=== PATIENT | female | born 1945 | race African-American/Black ===

== ENCOUNTER 2022-12-11 08:10 | Outpatient (REF) | payer OTHER, SELFPAY ==
[2022-12-11 14:33] LABS: MANUAL DIFF FLAG NO
[2022-12-11 14:40] LABS: Basophils Absolute Auto 0.1 X10*3/uL (0.0-0.2); Basophils Percent Auto 0.8 % (0-2); Eosinophils Absolute Auto 0.2 X10*3/uL (0.0-0.4); Eosinophils Percent Auto 2.7 % (0-4); Hematocrit 38.5 % (37.0-47.0); Hemoglobin 12.1 g/dl (12.0-16.0); Imm Gran Abs Auto 0.01 X10*3/uL (0.00-0.03); Imm Gran Pct Auto 0.2 % (0.0-0.4); Lymphocytes Absolute Auto 2.5 X10*3/uL (1.2-4.9); Mean Corpuscular HGB Conc 31.4 g/dl (31.0-35.0); Mean Corpuscular Hemoglobin 27.6 pg (27.0-33.0); Mean Corpuscular Volume 87.7 fL (80.0-98.0); Mean Platelet Volume 10.6 fL (9.4-12.3); Monocytes Absolute Auto 0.4 X10*3/uL (0.1-1.2); Monocytes Percent Auto 7.2 % (2-11); Neutrophils Absolute Auto 2.9 x10*3/uL (2.0-8.3); Neutrophils Percent Auto 48.1 % (45-73); Platelet Count 266 X10*3/uL (160-400); Red Blood Count 4.39 X10*6/uL (4.20-5.50); Red Cell Distribution Width 13.2 % (11.0-16.0)
[2022-12-11 15:19] LABS: Alanine Aminotransferase 22 U/L (0-31); Albumin Level 4.3 g/dL (3.5-5.0); Alkaline Phosphatase 74 U/L (39-117); Anion Gap 13 (12-20); Aspartate Amino Transferase 23 U/L (5-31); Bilirubin Direct 0.2 mg/dL (0.0-0.5); Bilirubin Total 0.4 mg/dL (0.0-1.0); Blood Urea Nitrogen 13 mg/dL (9-16); Calcium 10.2 mg/dL (8.4-10.2); Carbon Dioxide 26 mmol/L (22-29); Chloride 103 mmol/L (96-108); Cholesterol 199 mg/dL (<200); Estimated Glomerular Filt Rate 55; Glucose Fasting 72 mg/dL (60-99); HDL Cholesterol 48 mg/dL (>40); LDL Cholesterol Calculated 128 mg/dL (<100); Potassium 3.4 mmol/L (3.3-5.1); Sodium 139 mmol/L (135-145); Total Protein 8.6 g/dL (6.5-8.0); Triglycerides 117 mg/dL (<150)
== END 2022-12-11 08:11 | disposition home or self-care (01) ==
LOC: HO.CHCLDS 08:10
PROVIDERS: Visit Provider Student in an Organized Health Care Education/Training Program
DX: I10 Essential (primary) hypertension (principal)
CPT/HCPCS: 36415; 80048; 80061; 80076; 85025

== ENCOUNTER 2023-02-27 10:35 | Outpatient (REF) | payer OTHER, SELFPAY ==
[2023-02-27 14:19] LABS: MANUAL DIFF FLAG NO
[2023-02-27 14:30] LABS: Basophils Percent Auto 0.6 % (0-2); Eosinophils Absolute Auto 0.2 X10*3/uL (0.0-0.4); Eosinophils Percent Auto 2.5 % (0-4); Hematocrit 37.2 % (37.0-47.0); Hemoglobin 11.8 g/dl (12.0-16.0); Imm Gran Abs Auto 0.02 X10*3/uL (0.00-0.03); Imm Gran Pct Auto 0.3 % (0.0-0.4); Lymphocytes Absolute Auto 2.6 X10*3/uL (1.2-4.9); Lymphocytes Percent Auto 36.5 % (20-40); Mean Corpuscular HGB Conc 31.7 g/dl (31.0-35.0); Mean Corpuscular Hemoglobin 27.7 pg (27.0-33.0); Mean Corpuscular Volume 87.3 fL (80.0-98.0); Mean Platelet Volume 10.8 fL (9.4-12.3); Monocytes Absolute Auto 0.6 X10*3/uL (0.1-1.2); Monocytes Percent Auto 8.2 % (2-11); Neutrophils Absolute Auto 3.7 x10*3/uL (2.0-8.3); Neutrophils Percent Auto 51.9 % (45-73); Platelet Count 243 X10*3/uL (160-400); Red Blood Count 4.26 X10*6/uL (4.20-5.50); Red Cell Distribution Width 13.6 % (11.0-16.0); White Blood Count 7.1 X10*3/uL (4.8-10.8)
[2023-02-27 14:43] LABS: C Reactive Protein 2.93 mg/dL (< or = 0.50)
[2023-02-27 15:18] LABS: Erythrocyte Sedimentation Rate 45 MM/HR (0-20)
[2023-03-02 17:28] LABS: Lyme Abs Screen <0.90 index
[2023-03-02 21:59] LABS: A. Phagocytphilium DNA,RT-PCR NOT DETECTED (NOT DETECTED); Babesia Microti DNA, RT-PCR NOT DETECTED (NOT DETECTED); Borrelia Miyamotoi,DNA RT-PCR NOT DETECTED (NOT DETECTED); E.Chaffeensis DNA RT-PCR NOT DETECTED (NOT DETECTED); Lyme(Borrelia ssp)DNA RT-PCR NOT DETECTED (NOT DETECTED)
== END 2023-02-27 10:36 | disposition home or self-care (01) ==
LOC: HO.CHCLDS 10:35
PROVIDERS: Visit Provider Registered Nurse
DX: S80.862D Insect bite (nonvenomous), left lower leg, subsequent encounter (principal); L03.90 Cellulitis, unspecified; W57.XXXD Bitten or stung by nonvenomous insect and other nonvenomous arthropods, subsequent encounter
CPT/HCPCS: 36415; 85025; 85652; 86140; 86617; 86618; 87468; 87469; 87478; 87484; 87798

== ENCOUNTER 2024-01-04 08:42 | Outpatient (REF) | payer OTHER, SELFPAY ==
[2024-01-04 15:00] LABS: Alanine Aminotransferase 19 U/L (0-31); Albumin Level 4.5 g/dL (3.5-5.0); Alkaline Phosphatase 74 U/L (39-117); Anion Gap 16 (12-20); Aspartate Amino Transferase 19 U/L (5-31); Bilirubin Direct 0.1 mg/dL (0.0-0.5); Bilirubin Total 0.4 mg/dL (0.0-1.0); Blood Urea Nitrogen 19 mg/dL (9-16); Calcium 10.3 mg/dL (8.4-10.2); Carbon Dioxide 27 mmol/L (22-29); Chloride 100 mmol/L (96-108); Cholesterol 230 mg/dL (<200); Estimated Glomerular Filt Rate 58; Glucose Random 88 mg/dL (60-115); HDL Cholesterol 48 mg/dL (>40); LDL Cholesterol Calculated 152 mg/dL (<100); Potassium 3.5 mmol/L (3.3-5.1); Sodium 139 mmol/L (135-145); Total Protein 8.5 g/dL (6.5-8.0); Triglycerides 153 mg/dL (<150)
== END 2024-01-04 08:43 | disposition home or self-care (01) ==
LOC: HO.CHCLDS 08:42
PROVIDERS: Visit Provider Student in an Organized Health Care Education/Training Program
DX: I10 Essential (primary) hypertension (principal); E78.00 Pure hypercholesterolemia, unspecified
CPT/HCPCS: 36415; 80048; 80061; 80076

== ENCOUNTER 2024-11-04 08:02 | Outpatient (REF) | payer OTHER, SELFPAY ==
--- OUTSIDE RECORDS SUMMARY | 2024-11-04 08:05 | XMS_ITS | Clinical Summary ---
Author Organization [facility] Address [address] [place] [address] Care Team Providers Care Bingo Floater Name Role Phone Pcp, No Primary Care Provider Unavailabl e Allergies No known active allergies Social History Tobacco Use Types Packs/Day Years Used Date Smoking Tobacco: Never Assessed Comments Unknown Sex and Gender Information Value Date Recorded Sex Assigned at Not on file Legal Sex Female 4:22 PM EDT Gender Identity Not on file Sexual Orientation Not on file Last Filed Vital Signs Vital Sign Reading Time Taken Comments Blood Pressure 145/66 11/29/2020 7:14 PM EDT Pulse 64 11/29/2020 7:14 PM EDT Temperature 36.4 C (97.5 F) 11/29/2020 7:14 PM EDT Respiratory Rate 17 11/29/2020 7:14 PM EDT Oxygen Saturation 100% 11/29/2020 7:14 PM EDT Inhaled Oxygen Concentration - - Weight - - Height - - Body Mass Index - - Plan of Treatment Health Maintenance Due Date Last Done Comments Hepatitis C Virus Screening 1945 DTaP/Tdap/Td Vaccines (1 - Tdap) 1964 Pneumococcal Vaccines 50+ (1 of 1 - PCV) 1995 Zoster (Shingles) Vaccine (1 of 2) 1995 DXA Bone Density (Females,Ag es 65 and older) 2010 RSV Vaccine 60 years and old er and Patients (1 - 1-dose 75+ series) 2020 COVID-19 Vaccine ( - 2023-2 5 season) 2023 Influenza Vaccine 11/18/2024 Hepatitis B Vaccines Aged Out No long er eligible based on patient's age to complete this topic Insurance [facility] [place]ICARE OUT OF NETWORK Care Teams Bingo Floater Relationship Specialty Start Date End Date Pcp, No PCP - General General Medicine 11/29/20
--- OUTSIDE RECORDS SUMMARY | 2024-11-04 08:05 | XMS_ITS | Encounter Summary ---
Author Organization [employer] Address [address] [facility] [address] [place] [address] Care Team Providers Care County Sheriff Name Role Phone Eleni Abrams MD Primary Care Provider [phone] Reason for Visit * Reason Onset Date Comments Medication Question 08/27/2022 Encounter Details Date Type Department Care Team ([facility] st Contact Info) Description 08/27/2022 Telephone [facility] [address] [place], [place] [phone] Eleni Abrams MD [address] [place] [address] Medication Question Social History Tobacco Use Types Packs/Day Years Used Date Smoking Tobacco: Never Assessed Comments Unknown Sex and Gender Information Value Date Recorded Sex Assigned at Female 02/17/2022 10:14 AM EDT Legal Sex Female 10:14 AM EDT Gender Identity Female 02/17/2022 10:14 AM EDT Sexual Orientation Straight 02/17/2022 10 :14 AM EDT COVID-19 Exposure Response Date Recorded In the last 10 days, have yo u been in contact with someone who was confirmed or suspected to have Coronavirus/COVID-19? No / Unsure 08/22/2022 9:13 AM EDT documented as of this encounter Miscellaneous Notes * Telephone Encounter - Nancy Fatima RN - 08/27/2022 11:31 AM EDT Per office note from 08/22/22, pt started on Meloxicam as needed. Rx not sent. Will forward to PCP rachel. Please advise. Thank you. * Telephone Encounter - Ros Brock - 08/27/2022 11:22 AM EDT Tc from pt requesting status on a medication pcp was going to prescribe on last visit on 08/22/22. Pt also informs was going to get a call back regarding status on med line paper work . documented in this encounter Plan of Treatment Upcoming Encounters Date Type Department Care Team (Late st Contact Info) Description 11/11/2024 11:00 AM EDT Clinical Support [facility] [address] [place] [address] documented as of this encounter Visit Diagnoses Not on filedocumented in this encounter Care Teams County Sheriff Relationship Specialty Start Date End Date Eleni Abrams MD [address] [place] [id number] PCP - General Family Medicine 05/19/13 documented as of this encounter
--- OUTSIDE RECORDS SUMMARY | 2024-11-04 08:05 | XMS_ITS | Data Portability ---
Author Organization [employer] [facility], [facility] Address [address] [place] [address] Care Team Providers Care Intelligence Operations Name Role Phone [facility] OTHER [phone] [facility] OTHER Assessment Encounter Date Assessment Date Assessment LastModified by Organization Details LastModified Time 05/02/2024 05/02/2024 I provided real -time medical direction via phone for this encounter and was available for additional phone-based assistance as needed. I have reviewed and agree with the Assessment and Plan as documented by the Superintendent Electric [employer]. Patient given the opportunity to ask questions. Our service contacted for an assessment of: Viral URI symptoms As per above, patient with approximately several weeks of viral URI symptoms. Denies fever or chills. Denies chest pain, shortness of breath, dyspnea on exertion. Positive nasal congestion and dry cough. Positive sick contacts. Per osteologist on the scene, vital signs are stable and patient is afebrile. Minimal wheezing heard on exam. COVID and Flu are both negative. No increased work of breathing and no distress. Impression: Common cold and viral URI Plan: Continue with [id number] medications to control symptoms. Red flags discussed as to when to seek a higher level care. Allergies: Reviewed PCP f/u: We discussed the diagnostic uncertainty of home visits and the risk associated with this. In this case, the patient and I felt this to be an acceptable and reasonable amount of risk given the benefit of avoiding an ED visit. We discussed the need to seek care urgently/emergen tly in the setting of any new or worsening serious symptoms, particularly fever chills [email or web address] Not available 05/02/2024 16:49:03 Plan of Treatment Reminders Order Date Submit Date Provider Last Modified By Organization Details Last Modified Time Details Appointments None recorded. Lab rapid flu (A+B) [address], [address] [place] [address], [id number] 5 16:48:28 rapid SARS CoV 2 Ag, QL IA, respiratory specimen 2024 025 [email or web address], [address] [place] [address], [phone] 5 16:48:29 Referral None recorded. Procedures None recorded. Surgeries None recorded. Imaging None recorded. Medication Orders None recorded. Patient TargetsNo targets recorded. Patient InstructionsNo instructions recorded. Reason for Referral None Reported. Results Created Date Observation Date Name Description Value Unit Range Abnormal Flag Note LastModifiedBy Organization Detail LastModifiedTime 05/02/1905/02/2024 rapid SARS CoV 2 Ag, QL IA, respi rator y speci men rapid SARS CoV 2 Ag, QL IA, respiratory specimen negati ve Not Available [facility] ed [address] [place] [address], [phone] 05/02/2024 16:48:16 05/02/19 25 05/02/2024 rapid flu (A+B) Flu negati ve Not Available [address], [phone] 05/02/2024 16:48:15 Result Notes None recorded. Medical Equipment None Reported. Allergies No known drug allergies Medications Name Sig Start Date Stop Date Status Note LastModified by Organization Details LastModified Time nifedipine ER 30 mg tablet,extend ed release 24 hr TAKE 1 TABLET BY MOUTH EVERY DAY active Not Available Not Available No t Available betamethasone valerate 0.1 % topical ointment APPLY TOPICALLY IF NEEDED IN THE MORNING AND AT BEDTIME (DRYNESS). active Not Available Not Available N ot Available atorvastatin 80 mg tablet TAKE 1 TABLET BY MOUTH EVERY DAY active Not Available Not Available No t Available aspirin 81 mg tablet,delaye d release TAKE 1 TABLET BY MOUTH EVERY DAY active Not Available Not Available No t Available triamcinolone acetonide 0.1 % topical cream APPLY TOPICALLY IF NEEDED IN THE MORNING AND AT BEDTIME (PAIN AND SWELLING). active Not Available Not Available N ot Available ketorolac 0.5 % eye drops PLACE 1 DROP INTO THE OPERATIVE EYE TWICE A DAY START 2 DAYS PRIOR TO SURGERY. active Not Available Not Available No t Available hydrochloroth iazide 25 mg tablet TAKE 1 TABLET BY MOUTH EVERY DAY active Not Available Not Available No t Available lisinopril 40 mg tablet TAKE 1 TABLET BY MOUTH EVERY DAY IN THE MORNING active Not Available Not Available No t Available Vitamin D3 25 mcg (1,000 unit) tablet TAKE 1 TABLET BY MOUTH EVERY DAY active Not Available Not Available No t Available omega 8-svr-drx-fis h oil 1,000 mg (120 mg-180 mg) capsule TAKE 1 CAPSULE BY MOUTH EVERY DAY active Not Available Not Available No t Available Vitals Date Recorded Oxygen saturation Oxygen saturation in Arterial blood by Pulse oximetry Heart rate Respiratory rate Body temperature Systolic And Diastolic Provider Name and Address Organization Details Last Updated DateTime 5 99 % 99 % 71 /min 16 /min 98.2 [degF] 146/78 mm[Hg] Not Available [facility] - production 5 16:06:23 Social History None recorded. Functional Status None recorded. Mental Status None recorded. Family History Nothing Reported. Medical History No medical history recorded. Gynecological HistoryNo gynecological history recorded. Obstetrics History GPAL:G 0 P 0 0 0 0 Past Encounters Encounter ID Performer Location Encounter Start Date Encounter Closed Date Diagnosis/Indication Diagnosis SNOMED-CT Code Diagnosis ICD10 Code Diagnosis Note [id number] Simin Parrish MD Main - [facility] [address] [place] [phone] 05/02/2024 16:02:49 05/02/2024 17:11:44 Viral syndrome 708158755 B34.9 Health Concerns Section Related Observation LastModified by Organization Detai ls LastModified Time None Recorded Concern Status LastModified by Organization Details LastModified Time None Recorded Advance Directives Directive None Recorded Payers Insurance Date Sequence Insurance Name Policy Number Policy Hauser Covered Member ID Hauser Member ID Guarantor Name 05/14/2024 1 [facility] - DOS ON OR AFTER 2022 - DUAL ELIGIBLE - [employer] OPTIONS AND ONE CARE (MEDICARE REPLACEMENT/ADV ANTAGE - HMO) Angela Dallas [id number] Angela Dallas Notes Date Note Type Note Provider Name and Address Organization Details Recorded Time 05/02/2024 text/html HPI: Patient with illness since . Had N/V/D and now with cold suymptoms. Poor appetite an weakness. Fluid intake ok no urinary specific complaints per Daughter. .................. .................. .................. .................. .................. .................. .................. ............... [facility] Nurse Triage Notes (Mindi Cannon - RN): Chief Complaints: Weakness, Common cold symptoms PMH: Hypertension, Cancer PMH Reviewed at 05/02/2024 Allergies Reviewed at 05/02/2024 Comments: HPI reviewed- [place] Superintendent [employer] Organization Information for Sarthak Chance Dario F[employer] Legal Name: [employer] Address: [address] [place] [address], [place]: Po Benitez MD CLIA No.: [id number] [employer] POC Test Results from Sarthak Chance Rapid COVID antigen (16:06:37) COVID: - Rapid influenza antigen (16:06:40) Flu: - .................. .................. .................. .................. .................. .................. .................. ............... [employer] Note From Sarthak Chance: Dispatched to the call address for the female with cold like symptoms. Pt states that a little after Olivia she started with cold/flu like symptoms. She had cough, n/v/d, headaches and body aches but now she only has nasal congestion and fatigue. Pt advises she has been able to maintain PO hydration and nutrition. She has been taking OTC medications with good effect but has not spoken to her doctor. She denies chest pain, diff breathing/shortnes s of breath or any other symptoms at this time. Pt looking for reassurance. Pt was found opening the door, CAOx4, airway open and patent, breathing non labored, able to speak in full sentences, -JVD, -HEENT, skin PWD with good turgor, abd soft non tender/distended, mucous membranes pink and moist, Pupils PERRL, +CMSx4, lung sounds CTA, Rapid Covid/flu (-). [facility] [place]. Red flags discussed. ALL times are approx. .................. .................. .................. .................. .................. .................. .................. ............... [facility] Consulted: Simin Parrish .................. .................. .................. .................. .................. .................. .................. ............... Disposition: Fulfilled Simin Parrish MD [address] [facility], [place], [address], [facility] 05/02/2024 16:49:25 OBGyn Episode No OBEpisode recorded.
--- OUTSIDE RECORDS SUMMARY | 2024-11-04 08:05 | XMS_ITS | Clinical Summary ---
Author Organization [facility] Address [address] [facility] [address] [place] [address] Phone Care Team Providers Care Corncob Pipes Assembler Name Role Phone Eleni Abrams MD Primary Care Provider [phone] Allergies No known active allergies Medications atorvastatin (LIPITOR) 80 MG tablet Take 80 mg by mouth 1 (one) time each day Active cyclobenzaprine (FLEXERIL) 5 MG tablet Take 5 mg by mouth at night if needed for muscle spasms Active hydroCHLOROthia zide 25 MG tablet Take 25 mg by mouth 1 (one) time each day Active lisinopril 40 MG tablet Take 40 mg by mouth 1 (one) time each day Active naproxen (NAPROSYN) 500 MG tablet Take 500 mg by mouth 2 (two) times a day with meals Active NIFEdipine CC (ADALAT CC) 30 MG 24 hr tablet Take 30 mg by mouth 1 (one) time each day before breakfast Do not crush, chew, or split. Active calcitriol (ROCALTROL) 0.25 MCG capsule Take 0.25 mcg by mouth 1 (one) time each day Active Aspirin Low Dose 81 MG EC tablet 1 Active D3-1000 25 MCG (1000 UT) tablet 1 Active ketorolac (ACULAR) 0.5 % ophthalmic solution 1 Active Active Problems Problem Noted Date Diagnosed Date Hypercholesterolemia 02/20/2021 Carcinoma of breast 02/20/2021 Anemia 02/20/2021 Hypertension 02/20/2021 Incontinence 02/20/2021 Headache 02/20/2021 Colitis 02/20/2021 Social History Tobacco Use Types Packs/Day Years Used Date Smoking Tobacco: Never Smokeless Tobacco: Never Alcohol Use Standard Drinks/Week Comments Not Currently 0 (1 standard drink = 0.6 oz pur e alcohol) Comments Unknown Sex and Gender Information Value Date Recorded Sex Assigned at Not on file Legal Sex Female 4:00 PM EDT Gender Identity Not on file Sexual Orientation Not on file Last Filed Vital Signs Vital Sign Reading Time Taken Comments Blood Pressure 126/80 02/21/2021 2:01 PM EDT Pulse 92 02/21/2021 2:01 PM EDT Temperature - - Respiratory Rate - - Oxygen Saturation 97% 02/21/2021 2:01 PM EDT Inhaled Oxygen Concentration - - Weight 51.1 kg (112 lb 9.6 oz) 02/21/2021 2:01 P M EDT Height 154.9 cm (5' 1 ) 02/21/2021 2:01 PM EDT Body Mass Index 21.28 02/21/2021 2:01 PM EDT Plan of Treatment Health Maintenance Due Date Last Done Comments Pneumococcal Vaccine: 50+ Ye ars (1 of 2 - PCV) 1964 Influenza Vaccine (#1) 2024 Hepatitis B Vaccine Aged Out No longe r eligible based on patient's age to complete this topic Insurance ([id number]) ([id number]) [place] [id number] Care Teams Corncob Pipes Assembler Relationship Specialty Start Date End Date Eleni Abrams MD PCP - General Family Medicine 02/08/21
[2024-11-04 14:26] LABS: Alanine Aminotransferase 20 U/L (0-31); Albumin Level 4.2 g/dL (3.5-5.0); Alkaline Phosphatase 69 U/L (39-117); Anion Gap 12 (12-20); Aspartate Amino Transferase 30 U/L (5-31); Blood Urea Nitrogen 24 mg/dL (9-16); Calcium 9.2 mg/dL (8.4-10.2); Carbon Dioxide 27 mmol/L (22-29); Chloride 106 mmol/L (96-108); Cholesterol 188 mg/dL (<200); Estimated Glomerular Filt Rate 53; HDL Cholesterol 46 mg/dL (>40); Potassium 3.8 mmol/L (3.3-5.1); Sodium 141 mmol/L (135-145); Total Protein 7.6 g/dL (6.5-8.0); Triglycerides 117 mg/dL (<150)
== END 2024-11-04 08:03 | disposition home or self-care (01) ==
LOC: HO.CHCLDS 08:02
PROVIDERS: Visit Provider Student in an Organized Health Care Education/Training Program
DX: I10 Essential (primary) hypertension (principal)
CPT/HCPCS: 36415; 80048; 80061; 80076